=== PATIENT | female | born 1990 | race African-American/Black ===

== ENCOUNTER 2019-03-23 20:31 | Emergency (ER) | payer SELFPAY ==
[~2019-03-23 20:31] MED LIST: ISOVUE-370 76%-LOCM 1 ML ONE
--- NOTE | 2019-03-23 21:24 | RAD ---
EXAM: Single view of the chest HISTORY: Cough and congestion COMPARISON: None FINDINGS: Single view of the chest shows a normal sized cardiomediastinal silhouette. There is no jus dence of consolidation, mass, or pleural effusion. The bones are unremarkable. IMPRESSION: No evidence of acute cardiopulmonary disease
[2019-03-23] MEDS ORDERED: Ketorolac Tromethamine 30 MG/ML VIAL ONE (22:27)
[2019-03-23] MEDS ORDERED: Morphine 4 MG/ML VIAL ONE (22:27)
[2019-03-23] MEDS ORDERED: Ondansetron ODT 8 MG TAB ONE (22:27)
[2019-03-23 23:01] LABS: #Eosinphils 0.4 thou/uL (0.0-0.7); #Monocytes 0.9 thou/uL (0.11-0.59); %Basophils 0.6 % (0.0-1.0); %Eosinophils 6.9 % (0.0-10.0); %Lymphocytes 31.5 % (21.0-51.0); %Monocytes 14.5 % (0.0-10.0); %Neutrophils 46.5 % (42.0-75.0); Hemoglobin 10.8 g/dL (12.0-16.0); Mean Corpuscular Hemoglobin 25.5 pg (27.0-31.0); Mean Corpuscular Volume 79.7 fL (78.0-98.0); Mean Platelet Volume 8.2 fL (7.4-10.4); Platelet Count 257 thou/uL (130-400); RBC Distribution Width 14.3 % (11.5-14.5); Red Blood Cell (RBC) Count 4.25 mill/uL (4.20-5.40); White Blood Cell (WBC) Count 6.5 thou/uL (4.8-10.8)
[2019-03-23 23:23] LABS: ALT (SGPT) 19 U/L (8-55); AST (SGOT) 18 U/L (5-34); Albumin 3.7 g/dL (3.5-5.0); Alkaline Phosphatase 43 U/L (40-150); Anion Gap 11 mmol/L (10-20); BUN (Urea Nitrogen) 15 mg/dL (7.0-18.7); Bilirubin, Total 0.6 mg/dL (0.2-1.2); Calc. Creatinine Clearance 0 mL/min (70-130); Calcium 9.1 mg/dL (7.8-10.44); Carbon Dioxide 22 mmol/L (22-29); Chloride 107 mmol/L (98-107); Estimated GFR-MDRD Greater than 90; Glucose 92 mg/dL (70-105); Lipase 41 U/L (8-78); Magnesium 1.9 mg/dL (1.6-2.6); Potassium 3.7 mmol/L (3.5-5.1); Protein, Total 6.7 g/dL (6.0-8.3); Sodium 136 mmol/L (136-145)
[2019-03-23 23:28] LABS: MONO NEGATIVE CONTROL ZONE White (Negative) (White); MONO POSITIVE CONTROL Pink Line (Positive) (PINK/RED); Mononucleosis NEGATIVE (NEGATIVE)
[2019-03-23 23:42] LABS: Pregnancy Test - Urine (BHCG) Negative (Negative); Pregu Control Background? CLEAR/WHITE (CLR/WHITE); Pregu Control Bar Appear? YES (CONTROL BAR); Specific Gravity 1.031 (1.002-1.036)
[2019-03-23 23:45] LABS: Bilirubin Negative (Negative); Blood, Urine Negative (Negative); Clarity Turbid (Clear); Glucose, Urine (Dipstick) Normal (Negative); Leukocyte 500 Leu/uL (Negative); Nitrite Negative (Negative); Protein, Urine (Dipstick) 30 mg/dL (Neg-Trace); Squamous Epithelial Greater than 50 HPF (0-3); Urobilinogen Normal mg/dL (Less than 2); WBC/HPF 21-50 HPF (0-3)
[2019-03-23 23:46] LABS: Bacteria/HPF None Seen HPF (None Seen)
--- NOTE | 2019-03-23 23:58 | CT ---
EXAM: CT brain without contrast HISTORY: Altered mental status and headache COMPARISON: None TECHNIQUE: Multiple contiguous axial images were obtained and a CT of the brain without contrast. FINDINGS: The brain is normal in morphology and attenuation without focal lesions or confluent areas of infarction. There is no evidence of hydrocephalus, intracranial hemorrhage, or extra-axial fluid collection. The calvarium and overlying soft tissues are unremarkable. The visualized paranasal sinuses and masto id air cells are well aerated. IMPRESSION: No evidence of acute intracranial abnormality
--- NOTE | 2019-03-24 07:59 | CT ---
PRELIMINARY REPORT/[facility]/EMERGENCY AFTER HOURS PROCEDURE: EXAM: CT Abdomen and Pelvis With Contrast EXAM DATE/TIME: 03/23/2019 11:54 PM CLINICAL HISTORY: 29 years old, female; Prior surgery; Surgery date: 6+ months; Surgery type: ; Patient HX: Er 1. Generalized abdominal pain; F29 presents to the ED with multiple complaints onset 3 days ago. PT reports her illness started out with a sore throat, and then was accompanied by nose pain. PT then developed headache and chest pain yesterday, and is experiencing diarrhea/vomiting today. PT reports her cp is exacerbated by coughing TECHNIQUE: Imaging protocol: Computed tomography of the abdomen and pelvis with intravenous contrast. COMPARISON: No relevant prior studies available. FINDINGS: Liver: Normal. No mass. Gallbladder and bile ducts: Normal. No calcified stones. No ductal dilation. Pancreas: Normal. No ductal dilation. Spleen: Normal. No splenomegaly. Adrenals: Normal. No mass. Kidneys and ureters: Normal. No hydronephrosis. Stomach and bowel: No bowel wall thickening or intestinal obstruction. Appendix: Normal appendix. Intraperitoneal space: Physiologic amount of free fluid in the pelvis. Vasculature: Unremarkable. No abdominal aortic aneurysm. Lymph nodes: Unremarkable. No enlarged lymph nodes. Bladder: Unremarkable as visualized. Reproductive: Unremarkable as visualized. Bones/joints: Unremarkable. No acute fracture. Soft tissues: Unremarkable. IMPRESSION: No acute findings. Thank you for allowing us to participate in the care of your patient. Dictated and Authenticated by: Raz Owusu MD 03/24/2019 12:16 AM Central Time ([place] & [place]) FINAL REPORT: CT ABDOMEN AND PELVIS WITH IV CONTRAST: PROVIDED CLINICAL HISTORY: Abdominal pain. COMPARISON: None. FINDINGS/IMPRESSION: Agree with the preliminary interpretation given by [facility]. Transcribed Date/Time: 03/24/2019 8:05 AM
--- NOTE | 2019-03-24 08:00 | CT ---
PRELIMINARY REPORT/[facility]/EMERGENCY AFTER-HOURS PROCEDURE: EXAM: CT Angiography Chest Without And With Contrast EXAM DATE/TIME: 03/23/2019 11:54 PM CLINICAL HISTORY: 29 years old, female; Patient HX: Er 1. Chest pain; F29 presents to the ED with multiple complaints o nset 3 days ago. PT reports her illness started out with a sore throat, and then was accompanied by nose pain. PT then developed headache and chest pain yesterday, and is experiencing diarrhea/vomiting today. PT reports her cp is exacerbated by coughing TECHNIQUE: Imaging protocol: Computed tomographic angiography of the chest without and with intravenous contrast. 3D rendering: MIP reconstructed images were created and reviewed. COMPARISON: No relevant prior studies available. FINDINGS: Pulmonary arteries: Normal. No pulmonary emboli. Aorta: Unremarkable. No aortic aneurysm. No aortic dissection. Lungs: Unremarkable. No consolidation. No masses. Pleural space: Unremarkable. No pneumothorax. No pleural effusion. Heart: Unremarkable. No cardiomegaly. No pericardial effusion. Mediastinum: Esophagus is unremarkable. Lymph nodes: Unremarkable. No enlarged lymph nodes. Bones/joints: Unremarkable. No acute fracture. Soft tissues: Unremarkable. IMPRESSION: No acute findings. Thank you for allowing us to participate in the care of your patient. Dictated and Authenticated by: Raz Owusu MD 03/24/2019 12:12 AM Central Time ([place] & [place]) FINAL REPORT: CT PULMONARY ANGIOGRAM WITH IV CONTRAST AND 3-DIMENSIONAL RECONSTRUCTIONS: PROVIDED CLINICAL HISTORY: Chest pain COMPARISON: None FINDINGS/IMPRESSION: Agree with the preliminary interpretation given by [facility]. Transcribed Date/Time: 03/24/2019 8:11 AM
== END 2019-03-24 01:04 | disposition home or self-care (01) ==
LOC: ERS 20:31
DX: J18.9 Pneumonia, unspecified organism (principal)
CPT/HCPCS: 36415; 70450; 71045; 71275; 74177; 80053; 81003; 81015; 81025; 83605; 83690; 83735; 84484; 85025; 86308; 87040; 87081; 87086; 87430; 87804; 96361; 96374; 96375; J1885; J2270

== ENCOUNTER 2020-04-03 16:40 | Emergency (ER) | payer SELFPAY ==
--- NOTE | 2020-04-03 17:12 | RAD ---
Portable frontal chest radiograph: 04/03/2020 COMPARISON: 03/23/2019 HISTORY: Chest pain FINDINGS: Lungs are clear. Heart and mediastinal contours appear within normal limits. IMPRESSION: No acute findings.
[2020-04-03 17:36] LABS: #Eosinphils 0.5 thou/uL (0.0-0.7); #Lymphocytes 1.5 thou/uL (1.20-3.40); #Monocytes 0.9 thou/uL (0.11-0.59); #Neutrophils 6.5 thou/uL (1.40-6.50); %Basophils 0.4 % (0.0-1.0); %Eosinophils 4.9 % (0.0-10.0); %Lymphocytes 15.6 % (21.0-51.0); %Monocytes 9.8 % (0.0-10.0); %Neutrophils 69.4 % (42.0-75.0); Mean Corpuscular HGB CONC 30.6 g/dL (32.0-36.0); Mean Corpuscular Hemoglobin 24.1 pg (27.0-31.0); Mean Corpuscular Volume 78.6 fL (78.0-98.0); Mean Platelet Volume 9.2 fL (7.4-10.4); Platelet Count 276 thou/uL (130-400); RBC Distribution Width 15.5 % (11.5-14.5); Red Blood Cell (RBC) Count 4.99 mill/uL (4.20-5.40); White Blood Cell (WBC) Count 9.3 thou/uL (4.8-10.8)
[2020-04-03 18:09] LABS: ALT (SGPT) 24 U/L (8-55); AST (SGOT) 24 U/L (5-34); Albumin 4.4 g/dL (3.5-5.0); Alkaline Phosphatase 55 U/L (40-110); Anion Gap 14 mmol/L (10-20); BUN (Urea Nitrogen) 14 mg/dL (7.0-18.7); Bilirubin, Total 1.4 mg/dL (0.2-1.2); CK (CPK) 298 U/L (29-168); Calc. Creatinine Clearance 0 mL/min (70-130); Calcium 9.5 mg/dL (7.8-10.44); Carbon Dioxide 21 mmol/L (22-29); Chloride 104 mmol/L (98-107); Estimated GFR-MDRD Greater than 90; Globulin 3.7 g/dL (2.4-3.5); Glucose 88 mg/dL (70-105); Potassium 3.8 mmol/L (3.5-5.1); Protein, Total 8.1 g/dL (6.0-8.3); Sodium 135 mmol/L (136-145)
[2020-04-03] MEDS ORDERED: predniSONE 20 MG TAB ONE (19:25)
--- NOTE | 2020-04-05 12:56 | EKG ---
Test Reason : Blood Pressure : / mmHG Vent. Rate : 103 BPM Atrial Rate : 103 BPM P-R Int : 164 ms QRS Dur : 080 ms QT Int : 340 ms P-R-T Axes : 049 034 023 degrees QTc Int : 445 ms Sinus tachycardia Nonspecific T wave abnormality Abnormal ECG Confirmed by HARMONY HOYT ([id number]), restaurant expeditor JACKIE SAENZ ([id number]) on 04/05/2020 12:56:18 PM Referred By: Confirmed By:HARMONY Salazar
== END 2020-04-03 20:21 | disposition home or self-care (01) ==
LOC: ERS 16:40
DX: J45.909 Unspecified asthma, uncomplicated (principal); R07.89 Other chest pain
CPT/HCPCS: 71045; 80053; 82550; 84484; 85025; 93005; J7512; J7620

== ENCOUNTER 2021-07-29 17:16 | Emergency (ER) | payer SELFPAY ==
[2021-07-29] MEDS ORDERED: Ibuprofen 800 MG TAB ONE (17:57)
[2021-07-29] MEDS ORDERED: Ondansetron ODT 4 MG TAB ONE (17:57)
[2021-07-29] MEDS ORDERED: Acetaminophen 500 MG TAB ONE (17:57)
[2021-07-30 09:44] LABS: SARS-CoV-2 PCR by NAA DETECTED (NotDetected)
== END 2021-07-29 19:25 | disposition home or self-care (01) ==
LOC: ERS 17:16
DX: U07.1 COVID-19 (principal)
CPT/HCPCS: 99284; Q0162; U0003; U0005

== ENCOUNTER 2023-03-29 09:13 | Emergency (ER) | payer OTHER ==
[2023-03-29] MEDS ORDERED: Ondansetron PF 4 MG/2 ML Vial ONE (10:01)
[2023-03-29] MEDS ORDERED: Morphine 4 MG/ML VIAL ONE (10:01)
[2023-03-29] MEDS ORDERED: Iopamidol-370 76% 500 ML MDV (1 ML CHARGE) ONE (10:32)
[2023-03-29] MEDS ORDERED: Diazepam 5 MG TAB ONE (11:40)
[2023-03-29 12:33] LABS: Pregnancy Test - Urine (BHCG) Negative (Negative); Pregu Control Background? CLEAR/WHITE (CLR/WHITE); Pregu Control Bar Appear? YES (CONTROL BAR); Specific Gravity 1.023 (1.002-1.036)
== END 2023-03-29 14:02 | disposition home or self-care (01) ==
LOC: ERS 09:13
DX: S40.011A Contusion of right shoulder, initial encounter (principal); V49.50XA Passenger injured in collision with unspecified motor vehicles in traffic accident, initial encounter
CPT/HCPCS: 74177; 81025; 96374; 96375; J2270; J2405; Q9967

== ENCOUNTER 2025-03-06 10:38 | Emergency (ER) | payer OTHER ==
[2025-03-06] MEDS ORDERED: Proparacaine 0.5% Opth 15 ML BOT ONE (11:54)
[2025-03-06] MEDS ORDERED: Fluorescein Opthalmic Strip ONE (12:21)
[2025-03-06] MEDS ORDERED: diphenhydrAMINE 25 MG CAP ONE (12:32)
== END 2025-03-06 13:38 | disposition home or self-care (01) ==
LOC: ERS 10:38
DX: S05.02XA Injury of conjunctiva and corneal abrasion without foreign body, left eye, initial encounter (principal); H10.212 Acute toxic conjunctivitis, left eye; X58.XXXA Exposure to other specified factors, initial encounter; Z55.6 Problems related to health literacy
CPT/HCPCS: 99282